=== PATIENT | male | born 1955 | race Caucasian/White ===

== ENCOUNTER 2016-09-30 11:02 | Emergency (ER) | payer OTHER ==
[~2016-09-30] VITALS: Ht 185.4 cm; Wt 80.0 kg
[~2016-09-30 11:02] MED LIST: ASPI81TA11 PO; GABA100C4 PO; IBUP200C PO; LISI10TA3 PO; SIMV20TA PO
[2016-09-30 11:04] VITALS: BP 153/83; PULSE 88; RESP 12; TEMP 99; O2SAT 94
--- NOTE | 2016-09-30 11:27 | PD ---
HPI Chief Complaint: Pain: Acute or Chronic Time Seen by Provider: 11:22 Travel History International Travel<30 days: No Contact w/Intl Traveler<30days: No Traveled to known affect area: No History of Present Illness HPI 61-year-old male presents to the emergency Department with complaint of bilateral feet pain for many months. Denies new or recent injury. He says he has peripheral neuropathy. He is taking gabapentin. Pain is worse at times. Says the pain radiates up into his ankles at times and feels like he twisted his ankles. Pain is worse with walking. No known relieving factors. Denies paresthesias, loss of sensation, decreased range of motion, decreased strength to the affected extremities. He says he drinks alcohol and does not subsides the pain. And then when he doesn't drink he realizes the pain is worse. Dr. Velazquez [facility]. History of cardiomyopathy and hypertension. Allergies to bee stings, codeine, lovastatin, loss. No other modifying factors or associated signs and symptoms. History Past Medical Histgory Hx Cancer: No Social History Alcohol Use: Yes (occ) Tobacco Use: No Allergies-Medications (Allergen,Severity, Reaction): Coded Allergies: Bee Sting (Verified Allergy, Severe, sick to stomach, 06/19/16) Codeine (Verified Allergy, Severe, SLOWS HEART RATE, 06/19/16) Wasp (Verified Allergy, Severe, SICK TO STOMACH, 06/19/16) Lovastatin (Verified Adverse Reaction, Severe, 06/19/16) Muscle cramps Reported Meds & Prescriptions Reported Meds & Active Scripts Active Gabapentin 100 Mg Cap 100 Mg PO Q8HR Lisinopril 10 Mg Tab 10 Mg PO DAILY Simvastatin 20 Mg Tab 20 Mg PO HS Reported Ibuprofen 200 Mg Cap 200 Mg PO Q4H PRN Aspirin EC (Aspirin) 81 Mg Tabdr 81 Mg PO DAILY Review of Systems Except as stated in HPI: all other systems reviewed are Neg Physical Exam Narrative GENERAL: Well-nourished, well-developed male patient, in no acute distress SKIN: Warm and dry. HEAD: Atraumatic. Normocephalic. EYES: Pupils equal and round. No scleral icterus. No injection or drainage. ENT: Mucosa pink and moist. Airway patent. NECK: Trachea midline. CARDIOVASCULAR: Regular rate. RESPIRATORY: No accessory muscle use. GASTROINTESTINAL: Flat. MUSCULOSKELETAL: Bilateral feet are without erythema, edema, ecchymosis; no obvious deformity; sensory intact; tenderness on palpation to toes of each foot ; no tenderness elicited on palpation of the foot or ankles . Bilateral lower extremities are supple and non-tense with 2+ pedal pulses and sensory intact without erythema or edema. Patient ambulatory with normal gait. No obvious deformities. No clubbing. No cyanosis. No edema. NEUROLOGICAL: Awake and alert. Oriented 3. No obvious cranial nerve deficits. Motor grossly within normal limits. Normal speech. PSYCHIATRIC: Appropriate mood and affect; insight and judgment normal. Data Data Last Documented VS Vital Signs Date Time Temp Pulse Resp B/P Pulse Ox O2 Delivery O2 Flow Rate FiO2 09/30/16 11:04 99.0 88 12 153/83 94 MDM Medical Screen Exam Complete: Yes Emergency Medical Condition: No Narrative Course Peripheral neuropathy, heel spurs, plantar fasciitis Plan 61-year-old male with complaint of bilateral feet pain for a few months. He does have a history of peripheral neuropathy and takes gabapentin. Denies injury. Bilateral lower extremities are supple and non-tense with 2+ pedal pulses and sensory intact and without erythema or edema. Patient is ambulatory with normal gait. He [facility]. Vital signs are stable and the patient is stable for outpatient follow-up and treatment. The patient has no urgent or emergent medical complaints. There is no emergent or urgent medical need at this time. I instructed the patient to follow up with their primary care provider. A medical screening exam was performed: At the time of evaluation the presenting medical condition was determined not to be of an emergent nature. The patient was given the option of receiving additional care, but declined. Patient was given options for additional community resources from which to obtain care. The Patient Has Been advised to seek medical attention for their presenting complaint. The patient has been advised to return to the ER at any time if an emergent condition develops. 1208: Patient requesting work release note. Work release note provided. Primary Impression: Encounter for medical screening examination Additional Impression: Peripheral neuropathy Qualified Code: G62.9 - Peripheral polyneuropathy Referrals: Primary Care Physician Patient Instructions: General Instructions, Peripheral Neuropathy (ED) Departure Forms: Tests/Procedures, Work Release Enter return to work date: Oct 01, 2016 Additional Instructions: Continue gabapentin as prescribed Follow-up with primary care provider Med/Other Pt SpecificInfo: No Change to Meds, No Meds Exist/No RX given Disposition: 01 DISCHARGE HOME Condition: Stable Dianne Malone Sep 30, 2016 11:27
[2016-10-07] MEDS ORDERED: GABA100C4 PO (16:34)
[2016-11-11] MEDS ORDERED: KETO60IN6 IM (09:30)
[2016-11-11] MEDS ORDERED: GABA600T PO (09:30)
[2016-11-11] MEDS ORDERED: LISI10TA3 PO (09:33)
[2016-11-11] MEDS ORDERED: SIMV20TA PO (09:33)
[2016-11-13] MEDS ORDERED: GABA400C5 PO (07:33)
== END 2016-09-30 12:20 | disposition left against medical advice (07) ==
LOC: NETRI 11:02
DX: G62.9 Polyneuropathy, unspecified (principal)
CPT/HCPCS: 99281

== ENCOUNTER → 2016-12-15 | Outpatient (CLI) | payer OTHER ==
[~2016-12-15] MED LIST changes: -GABA100C4 PO; +GABA400C5 PO
== END ==
LOC: CLAB 09:38
PROVIDERS: ATTEND Family Medicine
DX: G62.9 Polyneuropathy, unspecified (principal)
CPT/HCPCS: 36415; 84550

== ENCOUNTER 2017-01-16 12:00 | Emergency (ER) | payer OTHER ==
[~2017-01-16] VITALS: Ht 182.9 cm; Wt 80.0 kg
[~2017-01-16 12:00] MED LIST changes: -GABA400C5 PO
[2017-01-16 12:02] VITALS: BP 189/107; PULSE 104; RESP 17; TEMP 98.4; O2SAT 99
--- NOTE | 2017-01-16 12:14 | PD ---
HPI Chief Complaint: Respiratory Symptoms Time Seen by Provider: 12:14 Travel History International Travel<30 days: No Contact w/Intl Traveler<30days: No Traveled to known affect area: No History of Present Illness HPI 61-year-old male came to the emergency room with history of chest pressure and not feeling good since 6:30 this morning. The pressure sensation in his right in the middle of the chest with no radiation. No history of nausea vomiting. Been coughing occasionally. He feels like he may have bronchitis since he has had that 6 months ago and felt the same. Patient says that he drank a lot of alcohol last night. Upon asking he just said a lot and also did some cocaine. Patient says that he was told he has cardiomegaly about 3-4 years ago and that his ejection fraction was low. He never saw any furniture cleaner since then. He is on some medication for high blood pressure even though his blood pressure was elevated when he first came in. He says his chest pressure is 3-4 out of 10. The cough is mostly nonproductive. [facility], [facility] Past Medical History Narrative Medical List of his past medical, surgical, social and family history is reviewed from the nursing note. Arthritis: No Asthma: Yes Blood Disorders: No Cancer: No Cardiovascular Problems: Yes High Cholesterol: Yes Chest Pain: Yes Diabetes: No Endocrine: No Gastrointestinal Disorders: Yes GERD: Yes Genitourinary: No Hypertension: Yes (ejection fraction 37% cardiomypoathy) Immune Disorder: No Musculoskeletal: No Neurologic: No Reproductive: No Respiratory: Yes Immunizations Current: Yes Sleep Apnea: Yes Past Surgical History Abdominal Surgery: No Body Medical Devices: SCREWS RIGHT ANKLE Cardiac Surgery: No Endocrine Surgery: No Genitourinary Surgery: No Joint Replacement: Yes (right ankle surgery) Neurologic Surgery: No Thoracic Surgery: No Other Surgery: Yes (RIGHT ANKLE) Social History Alcohol Use: Yes (occ) Tobacco Use: No Substance Use: Yes (cocaine a couple months ago) Allergies-Medications (Allergen,Severity, Reaction): Coded Allergies: Bee Sting (Verified Allergy, Severe, sick to stomach, 12/17/16) Codeine (Verified Allergy, Severe, SLOWS HEART RATE, 12/17/16) Wasp (Verified Allergy, Severe, SICK TO STOMACH, 12/17/16) Lovastatin (Verified Adverse Reaction, Severe, 12/17/16) Muscle cramps Comments List of his allergies reviewed from the nursing note. Reported Meds & Prescriptions Reported Meds & Active Scripts Active Lisinopril 10 Mg Tab 10 Mg PO DAILY Simvastatin 20 Mg Tab 20 Mg PO HS Reported Ibuprofen 200 Mg Cap 200 Mg PO Q4H PRN Aspirin EC (Aspirin) 81 Mg Tabdr 81 Mg PO DAILY Narrative Medication List of his home medications reviewed from the nursing note. Review of Systems Except as stated in HPI: all other systems reviewed are Neg Physical Exam Narrative GENERAL: Awake, alert, moderate distress SKIN: Focused skin assessment warm/dry. HEAD: Atraumatic. Normocephalic. EYES: Pupils equal and round. No scleral icterus. No injection or drainage. ENT: No nasal bleeding or discharge. Mucous membranes pink and moist. NECK: Trachea midline. No JVD. CARDIOVASCULAR: Regular rate and rhythm. No murmur appreciated. RESPIRATORY: No accessory muscle use. Clear to auscultation. Breath sounds equal bilaterally. GASTROINTESTINAL: Abdomen soft, non-tender, nondistended. Hepatic and splenic margins not palpable. MUSCULOSKELETAL: No obvious deformities. No clubbing. No cyanosis. No edema. NEUROLOGICAL: Awake and alert. No obvious cranial nerve deficits. Motor grossly within normal limits. Normal speech. PSYCHIATRIC: Appropriate mood and affect; insight and judgment normal. Data Data Last Documented VS Vital Signs Date Time Temp Pulse Resp B/P Pulse Ox O2 Delivery O2 Flow Rate FiO2 01/16/17 12:13 20 01/16/17 12:02 98.4 104 189/107 99 Orders Electrocardiogram (01/16/17 12:24) Basic Metabolic Panel (Bmp) (01/16/17 12:24) Complete Blood Count With Diff (01/16/17 12:24) Magnesium (Mg) (01/16/17 12:24) Prothrombin Time / Inr (Pt) (01/16/17 12:24) Troponin I (01/16/17 12:24) Chest, Single Ap (01/16/17 12:24) Ecg Monitoring (01/16/17 12:24) Bilateral Bp Monitoring (01/16/17 12:24) Iv Access Insert/Monitor (01/16/17 12:24) Oximetry (01/16/17 12:24) Oxygen Administration (01/16/17 12:24) Aspirin Chew (Aspirin Chew) (01/16/17 12:30) Sodium Chloride 0.9% Flush (Ns Flush) (01/16/17 12:30) Nitroglycerin Sl (Nitrostat Sl) (01/16/17 12:30) B-Type Natriuretic Peptide (01/16/17 12:27) Labs Laboratory Tests Test 01/16/17 12:37 White Blood Count 5.6 TH/MM3 Red Blood Count 4.30 MIL/MM3 Hemoglobin 13.4 GM/DL Hematocrit 39.9 % Mean Corpuscular Volume 92.8 FL Mean Corpuscular Hemoglobin 31.2 PG Mean Corpuscular Hemoglobin 33.6 % Concent Red Cell Distribution Width 13.0 % Platelet Count 168 TH/MM3 Mean Platelet Volume 7.5 FL Neutrophils (%) (Auto) 66.7 % Lymphocytes (%) (Auto) 22.7 % Monocytes (%) (Auto) 7.9 % Eosinophils (%) (Auto) 2.2 % Basophils (%) (Auto) 0.5 % Neutrophils # (Auto) 3.8 TH/MM3 Lymphocytes # (Auto) 1.3 TH/MM3 Monocytes # (Auto) 0.4 TH/MM3 Eosinophils # (Auto) 0.1 TH/MM3 Basophils # (Auto) 0.0 TH/MM3 CBC Comment DIFF FINAL Differential Comment Prothrombin Time 10.4 SEC Prothromb Time International 0.9 RATIO Ratio Sodium Level 141 MEQ/L Potassium Level 4.4 MEQ/L Chloride Level 108 MEQ/L Carbon Dioxide Level 26.8 MEQ/L Anion Gap 6 MEQ/L Blood Urea Nitrogen 13 MG/DL Creatinine 0.98 MG/DL Estimat Glomerular Filtration 78 ML/MIN Rate Random Glucose 93 MG/DL Calcium Level 8.6 MG/DL Magnesium Level 1.9 MG/DL Troponin I LESS THAN 0.02 NG/ML B-Type Natriuretic Peptide 110 PG/ML MDM Medical Decision Making Medical Screen Exam Complete: Yes Emergency Medical Condition: Yes Medical Record Reviewed: Yes Interpretation(s) Twelve-lead EKG was reviewed by me. Normal sinus rhythm, left axis deviation, right bundle branch block, frequent PVCs. Heart rate of 94 bpm. Differential Diagnosis ACS, non-STEMI, congestive heart failure, bronchitis, pneumonia Narrative Course 1:59 PM all the blood test results of back and within acceptable range. Chest x -rays within normal limits. Given his history and really concerned about coronary artery disease and ACS. I would like to keep him in chest pain center so that he can be seen by the furniture cleaner and ruled out. The patient has denied to stay. He wants to go home because he has a sick member to take care of at home. Patient will be leaving AGAINST MEDICAL ADVICE. He is in full capacity to make decisions for himself and understands the risks of leaving. He has been told not to do cocaine and drink so heavily since it would affect his heart. He says he understands and he would come back tomorrow. Procedures EKG Prior to Arrival: No Diagnosis Primary Impression: Chest pain Qualified Code: R07.9 - Chest pain, unspecified type Additional Impression: Cocaine abuse Marlyn Ying MD Jan 16, 2017 12:14 Marlyn Ying MD Jan 16, 2017 12:14
[2017-01-16] MEDS ORDERED: SODIUM CHLORIDE 0.9% FLUSH 10 ML FLUSH IVF PRN (12:30)
[2017-01-16] MEDS ORDERED: ASPIRIN 81 MG CHEW TAB PO ONE (12:30)
[2017-01-16] MEDS ORDERED: NITROGLYCERIN 0.4 MG SL 25 TABS/BTL SL ONE (12:30)
[2017-01-16 12:57] LABS: AUTOMATED NEUTROPHIL # 3.8 TH/MM3 (1.8-7.7); BASOPHIL % 0.5 % (0.0-2.0); EOSINOPHIL # 0.1 TH/MM3 (0-0.4); EOSINOPHIL % 2.2 % (0.0-4.0); HEMATOCRIT 39.9 % (39.0-51.0); HEMO FLAGS DIFF FINAL; LYMPH % 22.7 % (9.0-44.0); LYMPHOCYTE # 1.3 TH/MM3 (1.0-4.8); MEAN CELL VOLUME 92.8 FL (80.0-100.0); MEAN CORPUSCULAR HEMOGLOBIN 31.2 PG (27.0-34.0); MEAN CORPUSCULAR HGB CONC 33.6 % (32.0-36.0); MONO % 7.9 % (0.0-8.0); NEUT % 66.7 % (16.0-70.0); PLATELET COUNT 168 TH/MM3 (150-450); WHITE BLOOD COUNT 5.6 TH/MM3 (4.0-11.0)
[2017-01-16 13:02] LABS: INTERNATIONAL NORMALIZED RATIO 0.9 RATIO; PROTHROMBIN TIME - PATIENT 10.4 SEC (9.8-11.6)
--- NOTE | 2017-01-16 13:10 | RADRPT ---
EXAM DATE/TIME: 01/16/2017 12:40 [facility] COMPARISON: No previous studies available for comparison. INDICATIONS : Short of breath. MEDICAL HISTORY : bronchitis, Cardiomyopathy SURGICAL HISTORY : None. ENCOUNTER: Initial ACUITY: 1 day PAIN SCORE: 0/10 LOCATION: Bilateral chest FINDINGS: A single view of the chest demonstrates the lungs to be symmetrically aerated without evidence of mas s, infiltrate or effusion. The cardiomediastinal contours are unremarkable. Osseous structures are intact. CONCLUSION: No acute disease. Ochoa Louie MD on January 16, 2017 at 13:08 Board Certified Radiologist. This report was verified electronically.
[2017-01-16 13:19] LABS: ANION GAP 6 MEQ/L (5-15); BICARBONATE 26.8 MEQ/L (21.0-32.0); BLOOD UREA NITROGEN 13 MG/DL (7-18); CHLORIDE 108 MEQ/L (98-107); GLOMERULAR FILTRATION RATE 78 ML/MIN (>89); MAGNESIUM 1.9 MG/DL (1.5-2.5); POTASSIUM 4.4 MEQ/L (3.5-5.1); SODIUM (NA) 141 MEQ/L (136-145)
--- NOTE | 2017-01-17 12:29 | EKG ---
Date Performed: 01/16/2017 Time Performed: 12:26:52 PTAGE: 61 years EKG: Sinus rhythm WITH FREQUENT VENTRICULAR PREMATURE COMPLEXES RIGHT BUNDLE BRANCH BLOCK Since previous tracing, no s ignificant change noted ABNORMAL ECG PREVIOUS TRACING : 03.22.2014 DOCTOR: Juancho Dove Interpretating Date/Time 01/17/2017 12:25:36
[2017-01-27] MEDS ORDERED: LISI-515 PO (09:05)
== END 2017-01-16 15:04 | disposition left against medical advice (07) ==
LOC: NEPD 12:00
DX: R07.9 Chest pain, unspecified (principal); F14.10 Cocaine abuse, uncomplicated; E78.00 Pure hypercholesterolemia, unspecified; I10 Essential (primary) hypertension; I51.7 Cardiomegaly; K21.9 Gastro-esophageal reflux disease without esophagitis; G47.30 Sleep apnea, unspecified
CPT/HCPCS: 71010; 80048; 83735; 83880; 84484; 85025; 85610; 93005; 99285

== ENCOUNTER → 2017-01-22 | Outpatient (CLI) | payer OTHER ==
[~2017-01-22] MED LIST changes: +LISI-515 PO
--- NOTE | 2017-01-22 12:41 | EKG ---
Date Performed: 01/22/2017 Time Performed: 07:38:14 PTAGE: 61 years EKG: Sinus rhythm . Right bundle branch block Abnormal ECG PREVIOUS TRACING : 01/16/2017 12.26 DOCTOR: Ced Plata Interpretating Date/Time 01/22/2017 12:39:00
--- NOTE | 2017-01-24 19:34 | HM ---
Date Performed: 01/22/2017 Time Performed: 07:43:00 HOOKUP DATE: 01/22/17 07:43:00 AM [facility] ANALYSIS START TIME: 01/22/2017 7:48:00 AM ANALYSIS END TIME: 01/23/2017 7:52:00 AM PATIENT AGE: 61 PATIENT HEIGHT PATIENT WEIGHT DRUG LIST PATIENT DIAGNOSIS: palpitations TEST NARRATIVE: The patient's average heart rate was 88 BPM. Heart rates greater than 120 B PM were noted 3% of the time. No episodes of bradycardia were noted. No pauses exceeding 2.0 sec onds were noted. 48297 ventricular ectopics, which represented 10% of the total beat count, were noted. The highest ventricular ectopic frequency occurred from 08:00 AM to 09:00 AM [facility]. During thi s time 1376 VE(s) occurred. Ventricular [place] 465[address] isolated beat(s), as 427 cou plet(s) and as 15 run(s). Some of the ventricular beats occurred in bigeminal cycles. No suprave ntricular ectopics were noted. In channel 1, a single episode of ST depression (defined as -1.0 m m or more) occurred at 12:45:10 AM Fri with a maximum depression of -3.2 mm. In channel 2, a single episode of ST depression (defined as -1.0 mm or more) occurred at 04:34:42 AM Fri with a maximum depr ession of -2.1 mm. No episodes of ST depression (defined as -1.0 mm or more) were noted in channel 3 . NO ENTRIES WERE WRITTEN IN THE PATIENT DIARY. TEST INTERPRETATION: Agree with the narrative. The triplets of PVCs were seen intermittently wi th the fastest 3 beat triplet at a rate of 174 and commonly seen at a rate of between 165 and 174 but they were all self terminating at 3 beats. No more complex ventricular ectopy is seen and no ventric ular tachycardia is seen. PVCs are quite frequently throughout the tracing. When the patient has sinu s tachycardia the PVCs generally appear to be suppressed. No PACs are seen and no heart block is seen . There are no entries in the patient diary. Either the patient did not make entries or did not feel these frequent PVCs. Overall this patient has frequent ventricular ectopy of moderately complexity bu t no ventricular tachycardia and there is no atrial ectopy at all. Clinical correlation is recommende d based on whether the patient has an underlying heart disease. Signed by : Santhosh Sahni
== END ==
LOC: HCAV 07:25
PROVIDERS: ATTEND Family Medicine
DX: R00.2 Palpitations (principal)
CPT/HCPCS: 93005; 93225; 93226

== ENCOUNTER → 2017-03-16 | Outpatient (CLI) | payer OTHER ==
[~2017-03-16] MED LIST changes: -LISI10TA3 PO
[2017-03-16 10:14] LABS: ANION GAP 9 MEQ/L (5-15); AST (GOT) 19 U/L (15-37); BICARBONATE 25.5 MEQ/L (21.0-32.0); BLOOD UREA NITROGEN 23 MG/DL (7-18); CHLORIDE 107 MEQ/L (98-107); GLOMERULAR FILTRATION RATE 77 ML/MIN (>89); GLUCOSE,FASTING 93 MG/DL (74-99); POTASSIUM 3.8 MEQ/L (3.5-5.1); SODIUM (NA) 141 MEQ/L (136-145)
[2017-03-16 10:20] LABS: ALKALINE PHOSPHATASE 67 U/L (45-117); ALT (GPT) 21 U/L (12-78); HDL CHOLESTEROL 58.1 MG/DL (40.0-60.0); LDL CHOLESTEROL 92 MG/DL (0-99); TOTAL BILIRUBIN ADULT 0.7 MG/DL (0.2-1.0)
== END ==
LOC: CLAB 08:20
PROVIDERS: ATTEND Nurse Practitioner Family
DX: E78.5 Hyperlipidemia, unspecified (principal); I10 Essential (primary) hypertension
CPT/HCPCS: 36415; 80053; 80061